=== PATIENT | male | born 1990 | race Caucasian/White ===

== ENCOUNTER → 2023-03-05 | Day surgery (SDC) | payer OTHER ==
[~2023-03-05] MED LIST: BIOTIN PLUS 5,1 EACH PO; IMMUNE BOOSTER PO; LIDOCAINE HCL 2% LOCAL INJ 5 ML SDV VIAL INJ ONE; MELATONIN3 MG PO; MULTIVITAMINS1 EAC8 PO; POVIDONE IODINE 0.05% 0.05 % ML PO ONE; PROPOFOL IV EMULSION 10 MG/ML 20 ML VIAL ONE; VIT C PO; ZINC PO
[2023-03-05 07:55] VITALS: BP 113/79
== END | disposition home or self-care (01) ==
LOC: ENDO 07:40
PROVIDERS: ATTEND Surgery
DX: K21.9 Gastro-esophageal reflux disease without esophagitis (principal); K29.50 Unspecified chronic gastritis without bleeding; K31.A11 Gastric intestinal metaplasia without dysplasia, involving the antrum; K20.90 Esophagitis, unspecified without bleeding; K44.9 Diaphragmatic hernia without obstruction or gangrene
CPT/HCPCS: 43239; 88305; 88342; J2001; J2704; 88312